=== PATIENT | female | born 1980 | race Caucasian/White ===

== ENCOUNTER 2018-01-01 17:54 | Emergency (ER) | payer BC ==
[2018-01-01] MEDS: ONDANSETRON 4 MG INJ IV (22:48)
[2018-01-01] MEDS: SOD CHLORIDE 0.9% 1,000 ML IV (22:48)
[2018-01-01] MEDS: LORAZEPAM 1 MG TAB PO (22:49)
[2018-01-01] MEDS: KETOROLAC 15 MG INJ IV (23:43)
== END 2018-01-02 00:29 | disposition home or self-care (01) ==
LOC: E/R 01-02 00:29
DX: F10.920 Alcohol use, unspecified with intoxication, uncomplicated (principal); R00.0 Tachycardia, unspecified; R11.0 Nausea; R40.2142 Coma scale, eyes open, spontaneous, at arrival to emergency department; R40.2252 Coma scale, best verbal response, oriented, at arrival to emergency department; R40.2362 Coma scale, best motor response, obeys commands, at arrival to emergency department
CPT/HCPCS: 81025; 96374; 96375; 99284-25